=== PATIENT | female | born 1950 | race Caucasian/White ===

== ENCOUNTER 2018-07-12 09:07 | Day surgery (SDC) | payer MEDICARE, OTHER ==
[~2018-07-12 09:07] MED LIST: KETOROLAC TROMETHAMINE 0.45% 4 DROP/0.4 ML DROPERETTE OS PRN
[2018-07-12] MEDS ORDERED: EPINEPHRINE INJ/PF 1 MG/1 ML AMPULE ONE (09:08)
[2018-07-12] MEDS ORDERED: LIDOCAINE 1%/PHENYLEPHRINE 1.5% 1 ML VIAL ONE (09:08)
[2018-07-12] MEDS ORDERED: CHONDR SU A NA/HYALUR INTRAOC KIT (SURGICARE) ONE (09:08)
[2018-07-12] MEDS: TROPICAMIDE 1% OPH SOLN 3 ML OS PRN ×3 (09:48→09:59)
[2018-07-12] MEDS: TETRACAINE HCL 0.5% OPH SOLN 4 ML OS PRN ×4 (09:48→10:03)
[2018-07-12] MEDS ORDERED: MIDAZOLAM 2 MG/2 ML INJ ONE (09:48)
[2018-07-12] MEDS: BESIFLOXACIN HCL 0.6% OPH SUSP 5 ML BOTTLE OS PRN ×4 (09:49→10:25)
[2018-07-12] MEDS: CYCLOPENTOLATE 0.2%/PHENYLEPHRINE 1% OPH SOLN 2 ML OS PRN ×3 (09:50→09:59)
[2018-07-12] MEDS: DORZOLAMIDE HCL 2%/TIMOLOL MALEAT 0.5% OPH SOLN 10 ML OS PRN ×2 (10:25)
--- NOTE | 2018-07-12 19:23 | [facility] OPERATIVE REPORT E ---
[facility] Operative Report NAME: GINGER COREAS AGE: 67Y DATE OF SURGERY: 07/12/2018 ROOM: PREOPERATIVE DIAGNOSIS: CATARACT, LEFT EYE. POSTOPERATIVE DIAGNOSIS: CATARACT, LEFT EYE. OPERATION: Cataract extraction with insertion of an IOL of the left eye. SURGEON: JULIANN LAMBERT M.D. ANESTHESIA: Topical. PROCEDURE: After obtaining appropriate consent, the patient's left eye was prepped and draped in sterile fashion as well as the surgeon in a sterile manner and cataract surgery was started. First a paracentesis blade was used to make a side-port incision. Viscoelastic was used to inflate the anterior chamber. Next a 2.4 mm incision was made with a 2.4 mm blade, clear corneal temporally. A continuous capsulorrhexis was made using a cystotome and Utrata forceps. Following this hydrodissection was carried out to make the lens fully loose and mobile and it was rotated 90 degrees. Following this, a reqeje-yec-ovzuzda technique was used to phacoemulsify the lens with a CDE of 6.95. The remaining cortex was removed with irrigation/aspiration. Provisc was instilled into the capsular bag to inflate the bag. A ZCBOO, 31.5 diopter lens was placed. The remaining viscoelastic material was removed with irrigation/aspiration. Following this, the incision was found to be watertight. Besivance was instilled into the eye and a protective shield was placed over the eye. The patient returned to the postoperative recovery in stable condition. DICTATING PHYSICIAN: JULIANN LAMBERT M.D. [id number] PHY#: [id number] ID: [id number] JOB#: [id number] ACCT: [id number] cc:JULIANN LAMBERT M.D. >
--- NOTE | 2018-07-12 19:29 | [facility] DISCHARGE SUMMARY E ---
[facility] Discharge Summary NAME: GINGER COREAS AGE: 67Y ADMITTED: 07/12/2018 DISCHARGED: This is a 67-year-old female who underwent cataract extraction of the left eye. DIAGNOSIS: CATARACT LEFT EYE. She underwent surgery because she was having difficulty driving secondary to glare from headlights. She should be on a regular diet. No bending at the waist and no heavy lifting. She should use her Vigamox, ketorolac, and Pred Forte at 3:00 p.m. and 8:00 p.m. and sleep with a rigid shield. I will see her for her 1-day postop tomorrow. DICTATING PHYSICIAN: JULIANN LAMBERT M.D. [id number] PHY#: [id number] ID: [id number] JOB#: [id number] ACCT: [id number] cc:JULIANN LAMBERT M.D. >
== END 2018-07-12 11:05 | disposition home or self-care (01) ==
LOC: SC 09:07
PROVIDERS: ATTEND Internal Medicine
DX: H25.813 Combined forms of age-related cataract, bilateral (principal); H57.03 Miosis; H04.123 Dry eye syndrome of bilateral lacrimal glands; H01.002 Unspecified blepharitis right lower eyelid; H01.005 Unspecified blepharitis left lower eyelid; H40.033 Anatomical narrow angle, bilateral; E11.3293 Type 2 diabetes mellitus with mild nonproliferative diabetic retinopathy without macular edema, bilateral; I10 Essential (primary) hypertension; E78.00 Pure hypercholesterolemia, unspecified; G62.9 Polyneuropathy, unspecified; Z79.899 Other long term (current) drug therapy; Z79.4 Long term (current) use of insulin
CPT/HCPCS: 66984; 82962; V2632; J2250; J3490 ×2; A9270; J0171; J2370; 142

== ENCOUNTER 2018-08-02 09:12 | Day surgery (SDC) | payer MEDICARE, OTHER ==
[~2018-08-02 09:12] MED LIST changes: +FENTANYL CITRATE INJ/PF 100 MCG/2 ML AMPUL ONE; +KETOROLAC TROMETHAMINE 0.45% 4 DROP/0.4 ML DROPERETTE OD PRN; -KETOROLAC TROMETHAMINE 0.45% 4 DROP/0.4 ML DROPERETTE OS PRN; +MIDAZOLAM 2 MG/2 ML INJ ONE
[2018-08-02] MEDS: TETRACAINE HCL 0.5% OPH SOLN 4 ML OD PRN ×4 (10:25→10:57)
[2018-08-02] MEDS: TROPICAMIDE 1% OPH SOLN 3 ML OD PRN ×3 (10:25→10:50)
[2018-08-02] MEDS: CYCLOPENTOLATE 0.2%/PHENYLEPHRINE 1% OPH SOLN 2 ML OD PRN ×3 (10:25→10:50)
[2018-08-02] MEDS: BESIFLOXACIN HCL 0.6% OPH SUSP 5 ML BOTTLE OD PRN ×4 (10:25→11:23)
[2018-08-02] MEDS: CHONDR SU A NA/HYALUR INTRAOC KIT (SURGICARE) ONE ×2 (11:09)
[2018-08-02] MEDS: LIDOCAINE 1%/PHENYLEPHRINE 1.5% 1 ML VIAL ONE ×2 (11:09)
[2018-08-02] MEDS: EPINEPHRINE INJ/PF 1 MG/1 ML AMPULE ONE ×2 (11:09)
[2018-08-02] MEDS: DORZOLAMIDE HCL 2%/TIMOLOL MALEAT 0.5% OPH SOLN 10 ML OD PRN ×2 (11:23)
--- NOTE | 2018-08-03 00:24 | [facility] OPERATIVE REPORT E ---
[facility] Operative Report NAME: GINGER COREAS AGE: 67Y DATE OF SURGERY: 08/02/2018 ROOM: PREOPERATIVE DIAGNOSES: 1. CATARACT, RIGHT EYE. 2. PUPIL MIOSIS OF THE RIGHT EYE. POSTOPERATIVE DIAGNOSES: 1. CATARACT, RIGHT EYE. 2. PUPIL MIOSIS OF THE RIGHT EYE. OPERATION: Complex cataract extraction with use of a Malyugin ring. SURGEON: JULIANN LAMBERT M.D. ANESTHESIA: Topical. PROCEDURE: After obtaining appropriate consent, the patient's right eye was prepped and draped in sterile fashion as well as the surgeon in a sterile manner and cataract surgery was started. First a paracentesis blade was used to make a side-port incision. Viscoelastic was used to inflate the anterior chamber. Next a 2.4 mm incision was made with a 2.4 mm blade, clear corneal temporally. A continuous capsulorrhexis was made using a cystotome and Utrata forceps. Following this hydrodissection was carried out to make the lens fully loose and mobile and it was rotated 90 degrees. Following this, a itntyk-shh-bpxdsfz technique was used to phacoemulsify the lens with a CDE of 6.89. The remaining cortex was removed with irrigation/aspiration. Provisc was instilled into the capsular bag to inflate the bag. A ZZB00, 30.5 diopter lens was placed. The remaining viscoelastic material was removed with irrigation/aspiration. Following this, the incision was found to be watertight. Besivance was instilled into the eye and a protective shield was placed over the eye. The patient returned to the postoperative recovery in stable condition. Prior to making the capsulorrhexis a Malyugin ring was inserted due to poor pupillary dilation of less than 4 mm. This was removed at the end of the case. DICTATING PHYSICIAN: JULIANN LAMBERT M.D. [id number] PHY#: [id number] ID: [id number] JOB#: [id number] ACCT: [id number] cc:JULIANN LAMBERT M.D. >
--- NOTE | 2018-08-03 00:29 | [facility] DISCHARGE SUMMARY E ---
[facility] Discharge Summary NAME: GINGER COREAS AGE: 67Y ADMITTED: 08/02/2018 DISCHARGED: 08/02/2018 HOSPITAL COURSE: This is a 67-year-old patient who underwent cataract extraction complex of the right eye. DIAGNOSES: 1. CATARACT, RIGHT EYE. 2. PUPIL MIOSIS, RIGHT EYE REQUIRING A MALYUGIN RING. The patient underwent surgery because he was having difficulty driving at night secondary to glare from headlights. DISCHARGE INSTRUCTIONS: He is to be on a regular diet. No bending at the waist, no heavy lifting. He should use his Vigamox, Ilevro, and Predforte at 3 p.m. and 8 p.m. and sleep with a rigid shield. I will see him for his 1 day postoperative tomorrow. DICTATING PHYSICIAN: JULIANN LAMBERT M.D. [id number] PHY#: [id number] ID: [id number] JOB#: [id number] ACCT: [id number] cc:JULIANN LAMBERT M.D. >
== END 2018-08-02 12:15 | disposition home or self-care (01) ==
LOC: SC 09:12
PROVIDERS: ATTEND Internal Medicine
DX: H25.811 Combined forms of age-related cataract, right eye (principal); H57.03 Miosis; Z96.1 Presence of intraocular lens; I10 Essential (primary) hypertension; E11.9 Type 2 diabetes mellitus without complications; G62.9 Polyneuropathy, unspecified; Z79.899 Other long term (current) drug therapy
CPT/HCPCS: 82962; 66982; V2632; J2250; J3490 ×2; A9270; J0171; J3010; J2370; 142